=== PATIENT | male | born 1985 | race Caucasian/White ===

== ENCOUNTER 2022-07-27 19:36 | Emergency (ER) | payer OTHER ==
[~2022-07-27] VITALS: Ht 180.3 cm; Wt 104.3 kg
[2022-07-27 20:33] VITALS: BP 139/109
== END 2022-07-27 21:01 | disposition home or self-care (01) ==
LOC: ER 19:39
DX: U07.1 COVID-19 (principal); F41.9 Anxiety disorder, unspecified